=== PATIENT | female | born 1960 | race Caucasian/White ===

== ENCOUNTER 2016-06-05 11:40 | Observation (INO) | payer BC ==
[~2016-06-05] VITALS: Ht 157.5 cm; Wt 60.0 kg
[~2016-06-05 11:40] MED LIST: ATEN25TA PO; METH5TAB4 PO
[2016-06-05 11:42] VITALS: BP 105/74; PULSE 75; RESP 12; TEMP 98; O2SAT 96
--- NOTE | 2016-06-05 12:43 | PD ---
HPI Chief Complaint: Cardiac Complaint Time Seen by Provider: 12:34 Travel History International Travel<30 days: No Contact w/Intl Traveler<30days: No Traveled to known affect area: No History of Present Illness HPI Patient is a 56-year-old female who presents to emergency room with complaints of chest pain and shortness of breath for the past few months. Patient reports that for the past few months, she reports that she has been feeling increasingly short of breath, with intermittent chest pain. Reports that when she has a symptoms, she felt a pressure across her chest. Patient was concerned as she was told by her heavy equipment operating engineer Dr. Garrison that she will need definitive cardiac catheterization. Patient reports that if her chest pain was not getting any better and if she is still short of breath, she was to go to the emergency room for further workup and possibly admission with workup. Patient with no fevers or chills at this time. PFSH Past Medical History Asthma: Yes Heart Rhythm Problems: Yes (TACHYCARDIA) Endocrine: Yes (HYPERTHROIDISM) GERD: Yes Musculoskeletal: Yes (FX L CALCANEOUS) Influenza Vaccination: No ?: Not Menopausal: Yes : 1 Para: 1 Social History Alcohol Use: Yes (occasional) Tobacco Use: No Substance Use: No Allergies-Medications (Allergen,Severity, Reaction): Coded Allergies: No Known Allergies (Verified , 06/05/16) Reported Meds & Prescriptions Reported Meds & Active Scripts Active Reported Methimazole 5 Mg Tab 5 Mg PO BID Atenolol 25 Mg Tab 12.5 Mg PO DAILY Review of Systems General / Constitutional: No: Fever Eyes: No: Visual changes HENT: No: Headaches Cardiovascular: Positive: Chest Pain or Discomfort Respiratory: Positive: Shortness of Breath Gastrointestinal: No: Abdominal Pain Genitourinary: No: Dysuria Musculoskeletal: No: Pain Skin: No Rash Neurologic: No: Weakness Psychiatric: No: Depression Endocrine: No: Polydipsia Hematologic/Lymphatic: No: Easy Bruising Physical Exam Narrative GENERAL: nad, nontoxic SKIN: Warm and dry. HEAD: Atraumatic. Normocephalic. EYES: Pupils equal and round. No scleral icterus. No injection or drainage. ENT: No nasal bleeding or discharge. Mucous membranes pink and moist. NECK: Trachea midline. No JVD. CARDIOVASCULAR: Regular rate and rhythm. No murmur appreciated. RESPIRATORY: No accessory muscle use. Clear to auscultation. Breath sounds equal bilaterally. GASTROINTESTINAL: Abdomen soft, non-tender, nondistended. Hepatic and splenic margins not palpable. MUSCULOSKELETAL: No obvious deformities. No clubbing. No cyanosis. No edema. NEUROLOGICAL: Awake and alert. No obvious cranial nerve deficits. Motor grossly within normal limits. Normal speech. PSYCHIATRIC: Appropriate mood and affect; insight and judgment normal. Data Data Last Documented VS Vital Signs Date Time Temp Pulse Resp B/P Pulse Ox O2 Delivery O2 Flow Rate FiO2 06/05/16 13:10 18 99 Room Air 06/05/16 12:08 77 06/05/16 11:42 98.0 105/74 Orders Electrocardiogram (06/05/16 12:42) B-Type Natriuretic Peptide (06/05/16 12:42) Ckmb (Isoenzyme) Profile (06/05/16 12:42) Complete Blood Count With Diff (06/05/16 12:42) Comprehensive Metabolic Panel (06/05/16 12:42) Magnesium (Mg) (06/05/16 12:42) Prothrombin Time / Inr (Pt) (06/05/16 12:42) Act Partial Throm Time (Ptt) (06/05/16 12:42) Troponin I (06/05/16 12:42) Chest, Single Ap (06/05/16 12:42) Ecg Monitoring (06/05/16 12:42) Iv Access Insert/Monitor (06/05/16 12:42) Oximetry (06/05/16 12:42) Sodium Chloride 0.9% Flush (Ns Flush) (06/05/16 12:45) Npo After Midnight W/ Po Meds (06/05/16 Lunch) Consult Cardiology (06/05/16 ) (Hub Use Only)Inp Phy Cons/Ref (06/05/16 ) Aspirin (Aspirin) (06/05/16 14:15) Admit Order (Ed Use Only) (06/05/16 14:18) Labs Laboratory Tests Test 06/05/16 12:45 White Blood Count 10.3 TH/MM3 Red Blood Count 4.78 MIL/MM3 Hemoglobin 12.5 GM/DL Hematocrit 37.8 % Mean Corpuscular Volume 79.2 FL Mean Corpuscular Hemoglobin 26.2 PG Mean Corpuscular Hemoglobin 33.1 % Concent Red Cell Distribution Width 14.3 % Platelet Count 303 TH/MM3 Mean Platelet Volume 8.6 FL Neutrophils (%) (Auto) 67.6 % Lymphocytes (%) (Auto) 24.0 % Monocytes (%) (Auto) 7.4 % Eosinophils (%) (Auto) 0.5 % Basophils (%) (Auto) 0.5 % Neutrophils # (Auto) 7.0 TH/MM3 Lymphocytes # (Auto) 2.5 TH/MM3 Monocytes # (Auto) 0.8 TH/MM3 Eosinophils # (Auto) 0.0 TH/MM3 Basophils # (Auto) 0.1 TH/MM3 CBC Comment DIFF FINAL Differential Comment Prothrombin Time 10.8 SEC Prothromb Time International 1.0 RATIO Ratio Activated Partial 23.7 SEC Thromboplast Time Sodium Level 136 MEQ/L Potassium Level 4.3 MEQ/L Chloride Level 103 MEQ/L Carbon Dioxide Level 24.5 MEQ/L Anion Gap 9 MEQ/L Blood Urea Nitrogen 13 MG/DL Creatinine 0.47 MG/DL Estimat Glomerular Filtration 138 ML/MIN Rate Random Glucose 89 MG/DL Calcium Level 9.2 MG/DL Magnesium Level 2.1 MG/DL Total Bilirubin 0.4 MG/DL Aspartate Amino Transf 13 U/L (AST/SGOT) Alanine Aminotransferase 21 U/L (ALT/SGPT) Alkaline Phosphatase 175 U/L Total Creatine Kinase 56 U/L Troponin I LESS THAN 0.02 NG/ML B-Type Natriuretic Peptide 9 PG/ML Total Protein 8.0 GM/DL Albumin 3.8 GM/DL MDM Medical Decision Making Medical Screen Exam Complete: Yes Emergency Medical Condition: Yes Interpretation(s) EKG at 1253: Normal sinus rhythm at 71 beats a minute, QT/QTc 395/417 am in no acute ST-T wave changes Vital Signs Date Time Temp Pulse Resp B/P Pulse Ox O2 Delivery O2 Flow Rate FiO2 06/05/16 13:10 18 99 Room Air 06/05/16 12:08 77 18 97 Room Air 06/05/16 11:42 98.0 75 12 105/74 96 Room Air Differential Diagnosis ACS, electrolyte abnormality, arrhythmia, pneumothorax, PE Narrative Course Patient is a 56-year-old female who presents to emergency room with complaints of chest pain and shortness of breath for the past few months. Patient was sent to the emergency room by Dr. Garrison for further workup and evaluation. Patient was seen in the ER by Dr. Garrison, plan to keep her nothing by mouth after midnight and plan for cardiac catheterization at noon. Requests admission to medicine service. case reviewed with Dr. Barrios who accepts pt to service Diagnosis Primary Impression: Chest pain Qualified Code: R07.9 - Chest pain, unspecified type Admitting Information Admitting Physician Requests: Observation Krystal Harrington DO Jun 05, 2016 12:43
[2016-06-05] MEDS ORDERED: SODIUM CHLORIDE 0.9% FLUSH 5 ML FLUSH IVF PRN (12:45)
[2016-06-05 13:10] VITALS: RESP 18; O2SAT 99
--- NOTE | 2016-06-05 13:14 | RADRPT ---
EXAM DATE/TIME: 06/05/2016 12:48 [facility] COMPARISON: BARIUM SWALLOW, April 03, 2015, 9:54. INDICATIONS : Chest pain, Pt. c/o stress and anxiety. MEDICAL HISTORY : None. SURGICAL HISTORY : None. ENCOUNTER: Initial ACUITY: 4 - 6 months PAIN SCORE: 5/10 LOCATION: Bilateral chest FINDINGS: A single view of the chest demonstrates the lungs to be symmetrically aerated without evidence of mas s, infiltrate or effusion. The cardiomediastinal contours are unremarkable. Osseous structures are intact. CONCLUSION: No acute disease. Pat Silva MD on June 05, 2016 at 13:12 Board Certified Radiologist. This report was verified electronically.
[2016-06-05 13:22] LABS: BASOPHIL # 0.1 TH/MM3 (0-0.2); BASOPHIL % 0.5 % (0.0-2.0); EOSINOPHIL % 0.5 % (0.0-4.0); HEMATOCRIT 37.8 % (35.0-46.0); HEMO FLAGS DIFF FINAL; LYMPHOCYTE # 2.5 TH/MM3 (1.0-4.8); MEAN CELL VOLUME 79.2 FL (80.0-100.0); MEAN CORPUSCULAR HEMOGLOBIN 26.2 PG (27.0-34.0); MEAN CORPUSCULAR HGB CONC 33.1 % (32.0-36.0); MONO % 7.4 % (0.0-8.0); NEUT % 67.6 % (16.0-70.0); PLATELET COUNT 303 TH/MM3 (150-450); RED BLOOD COUNT 4.78 MIL/MM3 (4.00-5.30); RED CELL DISTRIBUTION WIDTH 14.3 % (11.6-17.2); WHITE BLOOD COUNT 10.3 TH/MM3 (4.0-11.0)
[2016-06-05 13:26] LABS: APTT (PATIENT) 23.7 SEC (24.3-30.1); PROTHROMBIN TIME - PATIENT 10.8 SEC (9.8-11.6)
[2016-06-05 13:37] LABS: ANION GAP 9 MEQ/L (5-15); AST (GOT) 13 U/L (15-37); BICARBONATE 24.5 MEQ/L (21.0-32.0); BLOOD UREA NITROGEN 13 MG/DL (7-18); CHLORIDE 103 MEQ/L (98-107); GLOMERULAR FILTRATION RATE 138 ML/MIN (>89); MAGNESIUM 2.1 MG/DL (1.5-2.5); POTASSIUM 4.3 MEQ/L (3.5-5.1); SODIUM (NA) 136 MEQ/L (136-145)
[2016-06-05 13:42] LABS: ALKALINE PHOSPHATASE 175 U/L (45-117); ALT (GPT) 21 U/L (10-53); TOTAL BILIRUBIN ADULT 0.4 MG/DL (0.2-1.0)
[2016-06-05 13:47] LABS: CREATINE KINASE 56 U/L (26-192)
[2016-06-05] MEDS ORDERED: ASPIRIN 325 MG TAB PO ONE (14:15)
[2016-06-05] MEDS ORDERED: SODIUM CHLORIDE 0.9% FLUSH 5 ML FLUSH FLUSH PRN (14:30)
[2016-06-05] MEDS ORDERED: ONDANSETRON HCL 4 MG/2 ML VIAL IVP PRN (14:30)
[2016-06-05] MEDS ORDERED: NITROGLYCERIN 0.4 MG SL 25 TABS/BTL SL PRN (14:30)
[2016-06-05] MEDS ORDERED: ACETAMINOPHEN 325 MG TAB PO PRN (14:30)
[2016-06-05] MEDS ORDERED: NALOXONE HCL 0.4 MG/ML AMP IV PRN (14:30)
--- NOTE | 2016-06-05 15:25 | MH ---
cc: JT BARRIOS DATE OF ADMISSION: 06/05/[address] Jt Barrios. PRIMARY CARE PHYSICIAN ___ REASON FOR ADMISSION Chest pain, history of cardiac complaint. HISTORY OF PRESENT ILLNESS The patient is a pleasant 56-year-old female with significant past medical history of hypothyroidism, also has history of tachycardia. The patient came to the ER from cardiology office because of the cardiac complaint. As per patient she has on and off chest pain with shortness of breath and low energy for the past few months, and it is ongoing. She went to the cardiology office today and cardiology told her to go to the ER for further evaluation and management. The patient came to the ER and evaluated by the ER physician because of intermittent chest pain with shortness of breath. The patient was recommended for admission. ER physician talked to the glass deposition tender and as per glass deposition tender he evaluated and if needed he will do a cardiac catheterization as well. The patient reported that chest pain is associated with shortness of breath. It is just central of the chest, non-radiating, associated with shortness of breath and sometimes low energy and weakness. There is no fever, no chills. No other associated symptoms. I saw the patient in the ER room and at present the patient has no chest pain. PAST MEDICAL HISTORY 1. Tachycardia. 2. Hypothyroidism. 3. Fracture calcaneus. MEDICATIONS Reviewed, please see EMR. The patient is on methimazole and Atenolol. ALLERGIES NO KNOWN DRUG ALLERGIES. REVIEW OF SYSTEMS As described above in the history of present illness, negative for 10 systems. SOCIAL HISTORY The patient occasionally drinks, does not smoke or do any drugs. The patient used to work as a cleaning lady, not working for the past three months because of these symptoms. FAMILY HISTORY Noncontributory. PHYSICAL EXAMINATION GENERAL: The patient is alert and oriented x3, ___ built, well-nourished, lying on bed without any apparent distress. VITAL SIGNS: The patient is afebrile, pulse is 77, respirations 18, blood pressure 105/74, pulse ox of 99% on room air. HEENT: Head is atraumatic, normocephalic. Eyes negative, no conjunctival icterus. Mouth unremarkable. NECK: Supple. No increased JVD. Negative thyromegaly. Central trachea. RESPIRATORY SYSTEM: Chest clear to auscultation. CVS: S1, S2 audible. Unable to hear any S3 gallop. GI: Abdomen soft, no organomegaly. Positive bowel sounds. MUSCULOSKELETAL: Extremities, no cyanosis or pedal edema appreciated. ENERGY MANAGER: Grossly intact. SKIN: Warm and dry. PSYCHE: Appropriate mood and affect. INVESTIGATIONS PT/INR within normal limits. APTT 23.7. Chemistry shows creatinine 0.47 otherwise within normal limits. LFTs within normal limits. Alkaline phosphatase 175. Troponin less than 0.02. LFTs within normal limits. CBC within normal limits. Chest x-ray was done which showed no acute disease. EKG showing sinus rhythm at rate of 71 beats per minute without any acute ST-T wave changes. ASSESSMENT 1. Chest pain with shortness of breath on and off for the past three months. Rule out [place]. 2. Hypothyroidism. 3. History of tachycardia. PLAN Admit to the floor under observation. Cardiology consult. Serial troponin. IV hydration. Continue home medications. Nitroglycerin on a p.r.n. basis. Aspirin. Discussed with the patient and spouse at the bedside in detail. Discussed with the ER physician. Further recommendation to follow as per patient progress. Jt Barrios MD JP/WILFREDO /2:37 PM /2:50 PM
[2016-06-05] MEDS: SODIUM CHLOR 0.45% 1000 ML INJ 1,000 ML IV SCH (15:52)
[2016-06-05 16:08] VITALS: BP 116/69; PULSE 83; RESP 19; O2SAT 99
--- NOTE | 2016-06-05 18:08 | MB ---
cc: JULIO BARNETT M.D. DATE OF CONSULTATION: 06/05/2016 REASON FOR CONSULTATION: HISTORY OF PRESENT ILLNESS: Lyndsey is a pleasant 56 year-old lady whose chief complaint in the ER is chest pain, shortness of breath. The chest pain is described as pressure-like. Workup as an outpatient included abnormal nuclear stress test which I do not have the results of at the time of dictation. She otherwise denies any fevers, chills, cough, GI/ bleeding, paroxysmal nocturnal dyspnea, orthopnea, syncope or dizziness. PAST MEDICAL HISTORY: As per present illness. She has a history of tachycardia, hyperthyroidism. SOCIAL HISTORY Drinks alcohol occasionally. Denies tobacco use. ALLERGIES None. MEDICATIONS 1. Aspirin 325 daily. 2. Atenolol 12.5 daily. 3. Tapazole 5 milligrams b.i.d. PHYSICAL EXAMINATION: VITAL SIGNS: Blood pressure 105/74, pulse 75, temperature 98.0. General: She is alert and oriented x3 in no acute distress. Neck: Supple. No JVD. No bruit. Cardiovascular: S1-S2, no murmurs, rubs, or gallops. Lungs: Clear to auscultation bilaterally. Abdomen: Soft, nontender, nondistended, positive bowel sounds. Extremities: No extremity edema. LABORATORY DATA: White count 10.3, hemoglobin 12.5, hematocrit 37.8, platelet count is 303. Sodium 136, potassium 4.3, chloride 103, bicarb 24.5, BUN 13, creatinine 0.47. AST 13, ALT 21, troponin less than 0.02, BMP 9, INR 1.0. Chest x-ray: No acute disease. EKG: Normal sinus rhythm at 71 beats per minute. DIAGNOSIS: 1. Unstable angina. 2. History of arrhythmia. 3. Dyspnea. 4. Microcytosis. DISCUSSION: The patient has unexplained angina-like chest pain. Due to the chest pain occurring at rest, she has [place] Cardiovascular Society class IV angina. Therefore due to her multiple risk factors, I do think cardiac catheterization is medically necessary for definitive diagnosis. I have explained to the patient the risks of the procedures, 5 to 10% chance of , stroke, heart attack, bleeding, need for emergency bypass, need for emergency surgery, need for blood transfusion, need for hemodialysis, bleeding, infection, anaphylaxis and arrhythmia, CVA, [place]. MD PARDEEP Denton/GABRIELLA /3:15 PM /5:36 PM
[2016-06-05] MEDS: METHIMAZOLE 5 MG TAB PO SCH (20:08)
[2016-06-05] MEDS: SODIUM CHLORIDE 0.9% FLUSH 5 ML FLUSH FLUSH SCH (20:08)
[2016-06-05 20:32] VITALS: BP 117/66; PULSE 91; RESP 21; TEMP 98; O2SAT 98
[2016-06-05 20:43] VITALS: BP 121/67; PULSE 88; RESP 21; TEMP 97.7; O2SAT 98
[2016-06-05 21:33] VITALS: PULSE 91
[2016-06-06] VITALS (7 sets, daily range): BP systolic 105–132; BP diastolic 63–69; PULSE 54–90; RESP 18–21; TEMP 97.4–98.8; O2SAT 94–98
[2016-06-06] MEDS ORDERED: TEMAZEPAM 15 MG CAP PO PRN (00:45)
[2016-06-06] MEDS: SODIUM CHLOR 0.45% 1000 ML INJ 1,000 ML IV SCH (01:36)
[2016-06-06 07:36] LABS: BASOPHIL # 0.1 TH/MM3 (0-0.2); BASOPHIL % 0.7 % (0.0-2.0); EOSINOPHIL # 0.1 TH/MM3 (0-0.4); EOSINOPHIL % 1.7 % (0.0-4.0); HEMATOCRIT 35.4 % (35.0-46.0); HEMO FLAGS DIFF FINAL; LYMPH % 30.7 % (9.0-44.0); LYMPHOCYTE # 2.2 TH/MM3 (1.0-4.8); MEAN CELL VOLUME 79.3 FL (80.0-100.0); MEAN CORPUSCULAR HEMOGLOBIN 27.1 PG (27.0-34.0); MEAN CORPUSCULAR HGB CONC 34.2 % (32.0-36.0); MONO % 11.3 % (0.0-8.0); NEUT % 55.6 % (16.0-70.0); PLATELET COUNT 292 TH/MM3 (150-450); RED BLOOD COUNT 4.47 MIL/MM3 (4.00-5.30); RED CELL DISTRIBUTION WIDTH 14.1 % (11.6-17.2); WHITE BLOOD COUNT 7.2 TH/MM3 (4.0-11.0)
[2016-06-06 07:54] LABS: POTASSIUM 4.6 MEQ/L (3.5-5.1)
[2016-06-06] MEDS: METHIMAZOLE 5 MG TAB PO SCH (08:23)
[2016-06-06] MEDS: SODIUM CHLORIDE 0.9% FLUSH 5 ML FLUSH FLUSH SCH (08:24)
--- NOTE | 2016-06-06 08:38 | HHI.PR ---
Subjective Remarks pt is feeling better no complaint ROS for 10 point system is unremarkable Objective Objective Results - Vital Signs Date Time Temp Pulse Resp B/P Pulse Ox O2 Delivery O2 Flow Rate FiO2 06/06/16 07:22 98.2 54 19 107/66 94 06/06/16 03:52 97.7 85 21 105/69 98 06/06/16 02:21 97.4 78 20 111/63 98 06/06/16 01:13 80 06/05/16 21:33 91 06/05/16 20:43 97.7 88 21 121/67 98 06/05/16 20:32 98.0 91 21 117/66 98 06/05/16 16:08 83 19 116/69 99 Room Air 06/05/16 13:10 18 99 Room Air 06/05/16 12:08 77 18 97 Room Air 06/05/16 11:42 98.0 75 12 105/74 96 Room Air I/O 06/05/16 06/05/16 06/05/16 06/06/16 06/06/16 06/06/16 07:00 15:00 23:00 07:00 15:00 23:00 Intake Total 240 ml Output Total 0 ml Balance 240 ml Intake Oral 240 ml Output Urine Total 0 ml Stool Total 0 ml # Voids 2 # Bowel Movements 2 Result Diagram: 06/06/1662406/06/16624 Other Results Laboratory Tests Test 06/05/16 06/05/16 06/06/16 06/06/16 12:45 19:10 00:33 06:25 White Blood Count 10.3 7.2 Red Blood Count 4.78 4.47 Hemoglobin 12.5 12.1 Hematocrit 37.8 35.4 Mean Corpuscular Volume 79.2 79.3 Mean Corpuscular Hemoglobin 26.2 27.1 Mean Corpuscular Hemoglobin 33.1 34.2 Concent Red Cell Distribution Width 14.3 14.1 Platelet Count 303 292 Mean Platelet Volume 8.6 8.4 Neutrophils (%) (Auto) 67.6 55.6 Lymphocytes (%) (Auto) 24.0 30.7 Monocytes (%) (Auto) 7.4 11.3 Eosinophils (%) (Auto) 0.5 1.7 Basophils (%) (Auto) 0.5 0.7 Neutrophils # (Auto) 7.0 4.0 Lymphocytes # (Auto) 2.5 2.2 Monocytes # (Auto) 0.8 0.8 Eosinophils # (Auto) 0.0 0.1 Basophils # (Auto) 0.1 0.1 CBC Comment DIFF FINAL DIFF FINAL Differential Comment Prothrombin Time 10.8 Prothromb Time International 1.0 Ratio Activated Partial 23.7 Thromboplast Time Sodium Level 136 137 Potassium Level 4.3 4.6 Chloride Level 103 104 Carbon Dioxide Level 24.5 27.0 Anion Gap 9 6 Blood Urea Nitrogen 13 16 Creatinine 0.47 0.57 Estimat Glomerular Filtration 138 111 Rate Random Glucose 89 92 Calcium Level 9.2 9.4 Magnesium Level 2.1 Total Bilirubin 0.4 Aspartate Amino Transf 13 (AST/SGOT) Alanine Aminotransferase 21 (ALT/SGPT) Alkaline Phosphatase 175 Total Creatine Kinase 56 Troponin I LESS THAN 0.02 LESS THAN 0.02 LESS THAN 0.02 B-Type Natriuretic Peptide 9 Total Protein 8.0 Albumin 3.8 Physical Exam Physical Exam GENERAL: The patient is alert and oriented x3, thin built, well-nourished, lying on bed without any apparent distress. VITAL SIGNS: The patient is afebrile, pulse is 77, respirations 18, blood pressure 105/74, pulse ox of 99% on room air. HEENT: Head is atraumatic, normocephalic. Eyes negative, no conjunctival icterus. Mouth unremarkable. NECK: Supple. No increased JVD. Negative thyromegaly. Central trachea. RESPIRATORY SYSTEM: Chest clear to auscultation. CVS: S1, S2 audible. Unable to hear any S3 gallop. GI: Abdomen soft, no organomegaly. Positive bowel sounds. MUSCULOSKELETAL: Extremities, no cyanosis or pedal edema appreciated. REPAIRER SCREEN CRUSHER: Grossly intact. SKIN: Warm and dry. PSYCHE: Appropriate mood and affect. A/P Assessment and Plan 1. Chest pain with shortness of breath on and off for the past three months. Rule out [place]. 2. Hypothyroidism. 3. History of tachycardia. PLAN al Cardiology consult. for c cath hopefully today Serial troponin x 3 neg IV hydration. Continue home medications. Nitroglycerin on a p.r.n. basis. Aspirin. Discussed with the patient with rn at bedside Further recommendation to follow as per patient progress. Sandro Barrios MD Jun 06, 2016 08:38
[2016-06-06] MEDS ORDERED: ATENOLOL 25 MG TAB PO SCH (09:00)
--- NOTE | 2016-06-06 10:48 | EKG ---
Date Performed: 06/05/2016 Time Performed: 12:53:52 PTAGE: 56 years EKG: Sinus rhythm NORMAL ECG PREVIOUS TRACING : 04/19/2016 09.16 Compared to prior tracing no significant change DOCTOR: Beau Uribe Interpretating Date/Time 06/06/2016 10:46:39
[2016-06-06] MEDS ORDERED: HEPARIN-NS/PF INJ 500 ML ONE (13:37)
[2016-06-06] MEDS ORDERED: IOHEXOL 350 MG/ML 50 ML BTL (for Cath Lab) OTHER ONE (14:37)
[2016-06-06] MEDS ORDERED: SODIUM CHLORIDE 0.9% FLUSH 5 ML FLUSH IVF PRN (15:00)
[2016-06-06] MEDS ORDERED: MISC INFORMATION XX ONE (15:00)
[2016-06-06] MEDS ORDERED: SODIUM CHLORIDE 0.9% FLUSH 5 ML FLUSH IVF SCH (21:00)
[2016-06-07] MEDS ORDERED: ASPIRIN 325 MG TAB PO SCH (09:00)
--- NOTE | 2016-06-07 12:36 | MA ---
cc: JULIO BARNETT M.D. DATE 06/07/2016 PROCEDURE PERFORMED Right heart cath, left heart catheterization, left ventriculography, coronary angiography INDICATIONS Severe dyspnea, CHF, chest pain, unstable angina, [place] cardiovascular society class 4 angina, [place] Heart Association class 3 heart failure, coronary disease, multiple risk factors. PROCEDURE The patient was brought to the cardiac catheterization lab, prepped and draped in the usual sterile fashion. 10 cc of 1% lidocaine was used to locally anesthetize the right common femoral artery. A 4-[place]ian sheath successfully placed in the right common femoral artery. A 6-[place] sheath placed in the right common femoral vein. Right heart catheterization was performed first with the following findings: Pulmonary capillary wedge pressure 8/7/5. PA pressure 23/7/14 PA sat 78.3% RV pressure 17/2-4 RA pressure 5/4-2 RA sat 79.6% Right femoral artery sat 96.7% on room air. Cardiac output by Nolan is 6.4 liters per minute. Cardiac cath output by Nolan is 4.0 liters per minute per meter squared. SVR 1088.5. Right heart catheterization was then performed with the following findings: LV pressure 120/2/3, EF 60%. The right coronary artery is dominant. There is mild subtle disease with mild tapering in the proximal mid segment up to 20% angiographically. This vessel tapers from about a 2.75 to 3.0 vessel and after the RV branch down to about a 1.5 to 2 mm vessel. The mid and distal segment has a 20% stenosis. Right PDA and right HORACE are small 1.5 to 2 mm vessels with no significant obstructive disease angiographically. The left main coronary has no significant disease angiographically. The left circumflex has no significant disease angiographically. The first obtuse marginal vessel has a high takeoff medium sized vessel with an ostial 20% stenosis. The second obtuse marginal vessel is a medium-sized vessel with subtle disease, slight luminal irregularities up to 5% angiographically. The LAD is transapical, tortuous with no significant disease angiographically. The first diagonal artery is a small to medium sized vessel with no significant wheeze angiographically. CONCLUSION 1. Mild two-vessel coronary disease in a right dominant system as detailed above. 2. Mild LV systolic function with ejection fraction of 60%. 3. Right heart pressures consistent with hypovolemia. RECOMMENDATIONS One liter of normal saline to be given in the laboratory analyst. Medical management of coronary disease. Cardiac risk factor modification. MD PARDEEP Denton/PUSHPA /3:00 PM /12:18 PM
== END 2016-06-06 20:27 | disposition home or self-care (01) ==
LOC: NEPC 11:40 → NEDA 14:19 → UNDOADMOB 14:20 → NEDA 14:20 → NEPGCP 18:19 → NEDA 18:19 → OBSVTOIN 06-06 14:57 → INTOOBSV 06-06 14:57 → UNDODISOB 06-06 20:27
PROVIDERS: ADMIT Specialist; ATTEND Specialist
DX: I25.110 Atherosclerotic heart disease of native coronary artery with unstable angina pectoris (principal); K21.9 Gastro-esophageal reflux disease without esophagitis; J45.909 Unspecified asthma, uncomplicated; E03.9 Hypothyroidism, unspecified; R53.1 Weakness; R00.0 Tachycardia, unspecified; R71.8 Other abnormality of red blood cells
CPT/HCPCS: 71010; 80048; 80053; 82550; 82810; 83735; 83880; 84484; 85025; 85610; 85730; 93005; 93460; 99285; C1769; C1893; G0378; J1644; Q9967